=== PATIENT | male | born 1990 | race Caucasian/White ===

== ENCOUNTER 2020-01-12 06:20 | Emergency (ER) | payer OTHER ==
[2020-01-12 06:46] VITALS: BP 120/90; PULSE 96; TEMP 98.1; BMI 25.7
--- NOTE | 2020-01-12 08:03 | PDOC ---
History of Present Illness - General Chief Complaint: Substance Abuse Stated Complaint: WEAKNESS & LETHARGY - History of Present Illness Initial Comments: 01/12/20 07:56 29 M with Hx of opioid and benzo use BIBA from home for choking during sleep. At 5 am, his gf noticed him choking in his sleep, she administered nasal norcan, and called the ambulance. He denies fever, chills, Vomitting. But he endorsed nausea, change of vision, weakness, chest pain, dizziness, and shortness of breath. He is breathing normally with RR of 20s at the ED, heart rate in the 80s. He denies use of opioid within the past 24 hrs, denies illicits drugs: cocaine, benzo, IV drug use, hx of hep C. He admitted using heroin by snoring 6 lines 4 days ago. He denies suicidal ideation. PMH: opioid use PSH: none Med: gabapentin, clonapin PCP: goldie grant SS: + smoking, drinking, drugs, last use of heroin was 4 days ago with 6 lines. worked as electrician yard. ROS GENERAL/CONSTITUTIONAL: No fever or chills. weakness. HEAD, EYES, EARS, NOSE AND THROAT: change in vision. No ear pain or discharge. No sore throat. CARDIOVASCULAR: chest pain and shortness of breath RESPIRATORY: No cough, wheezing, or hemoptysis. GASTROINTESTINAL: nausea, no vomiting, diarrhea or constipation. GENITOURINARY: No dysuria, frequency, or change in urination. MUSCULOSKELETAL: No joint or muscle swelling or pain. No neck or back pain. SKIN: No rash NEUROLOGIC: No headache, + vertigo, no loss of consciousness, or change in strength/sensation. ENDOCRINE: No increased thirst. No abnormal weight change HEMATOLOGIC/LYMPHATIC: No anemia, easy bleeding, or history of blood clots. ALLERGIC/IMMUNOLOGIC: No hives or skin allergy. PE GENERAL: Awake, alert, and fully oriented, in no acute distress HEAD: No signs of trauma, normocephalic, atraumatic EYES: PERRLA, EOMI, sclera anicteric, conjunctiva clear ENT: Auricles normal inspection, hearing grossly normal, nares patent, oropharynx clear without exudates. Moist mucosa NECK: Normal ROM, supple, no lymphadenopathy, JVD, or masses LUNGS: No distress, speaks full sentences, clear to auscultation bilaterally HEART: Regular rate and rhythm, normal S1 and S2, no murmurs, rubs or gallops, peripheral pulses normal and equal bilaterally. ABDOMEN: Soft, nontender, normoactive bowel sounds. No guarding, no rebound. No masses EXTREMITIES : Normal inspection, Normal range of motion, no edema. No clubbing or cyanosis. NEUROLOGICAL: Cranial nerves II through XII grossly intact. Normal speech, normal gait, no focal sensorimotor deficits SKIN: Warm, Dry, normal turgor, no rashes or lesions noted 01/12/20 09:16 Past History - Medical History Allergies/Adverse Reactions: Allergies Allergy/AdvReac Type Severity Reaction Status Date / Time No Known Allergies Allergy Verified 01/12/20 06:44 Home Medications: Ambulatory Orders Alprazolam [Xanax -] 2 mg PO BID 02/10/14 clonazePAM [Klonopin -] 0.1 mg PO BID 02/10/14 hydrOXYzine HCL [Atarax -] 50 mg PO BID 02/10/14 Zolpidem Tartrate [Ambien] 10 mg PO HS PRN #30 tablet 02/11/14 Anemia: No Asthma: No Cancer: No Cardiac Disorders: No CVA: No COPD: No CHF: No Dementia: No Diabetes: No GI Disorders: No Disorders: No HTN: No Hypercholesterolemia: No Kidney Stones: No Liver Disease: No Seizures: Yes (DRUG RELATED SEIZURES 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) Thyroid Disease: No - Surgical History Abdominal Surgery: No Appendectomy: No Cardiac Surgery: No Cholecystectomy: No Lung Surgery: No Neurologic Surgery: No Orthopedic Surgery: No - Reproductive History Testicular Surgery: No - Immunization History Td Vaccination: Yes Immunization Up to Date: Yes - Psycho-Social/Smoking History Smoking Status: No Smoking History: Current every day smoker Years of Tobacco Use: 0 Have you smoked in the past 12 months: Yes Number of Cigarettes Smoked Daily: 10 Cigars Per Day: 0 Information on smoking cessation initiated: No 'Breaking Loose' booklet given: 02/10/14 - Substance Abuse Hx (Audit-C & DAST Scrn) How often the patient has a drink containing alcohol: Monthly or less Number of drinks the patient has on a typical day: 3 or 4 How often the patient has six or more drinks on one occasion: Less than monthly Score: In Men: 4 or > Positive; In Women: 3 or > Positive: 3 Screen Result (Pos requires Nsg. Audit-10AR): Negative In the last yr the pt used illegal drug/Rx for NonMed reason: Yes Score: Yes response is considered Positive: 1 Screen Result (Positive result requires Nsg. DAST-10): Positive *Physical Exam - Vital Signs Last Vital Signs Temp Pulse Resp BP Pulse Ox 98.1 F 96 H 18 120/90 99 01/12/20 06:27 01/12/20 06:27 01/12/20 06:27 01/12/20 06:27 01/12/20 06:27 ED Treatment Course - LABORATORY CBC & Chemistry Diagram: 01/12/20 07:52 01/12/20 07:52 - RADIOLOGY Radiology Studies Ordered: Category Date Time Status CHEST PA & LAT [RAD] Stat Radiology 01/12/20 07:33 Ordered Medical Decision Making - Medical Decision Making 01/12/20 08:04 29 m with hx of opioid use BIBA from home for choking during sleep, administered nasal norcan at 5 am. ddx: opioid tox, ACS chest pain, aspiration Plan: cardiac monitoring, EKG, chest xray, CBC,CMP, trop. 01/12/20 08:06 EKG: reg rate, rhtym, normal axis , no sign of acute ischemic changes. vent rate 87 , qt/qtc 354/425 01/12/20 08:17 Patient is interested in [facility]. Patient is evaluated by senior and attending. 01/12/20 09:12 chest x ray is normal. Lab shows no concerning value. Patient is reassessed and stable Patient is [facility]. 01/12/20 09:58 Utox revealed positive : methadone, Benzo, marijuana. Discharge - Discharge Information Problems reviewed: Yes Clinical Impression/Diagnosis: Opioid dependence Opioid dependence with intoxication Qualifiers: Complication of substance-induced condition: uncomplicated Qualified Code(s): F11.220 - Opioid dependence with intoxication, uncomplicated Condition: Good Disposition: HOME - Admission No - Follow up/Referral Referrals: ON STAFF,NOT [Primary Care Provider] - - Patient Discharge Instructions Additional Instructions: Discharge Instructions: You were seen in the emergency department for opioid toxicity overdose We performed EKG, chest Xray, lab work, troponin, everything came back showed no concerning problem. Home Care and Follow Up: - Seek immediate medical care if you have significant worsening of your symptoms, respiratory depression, nausea, vomiting. - Patient is encouraged to call for [facility], recommended to go. - Encourage to stop recreational heroin. If Opioid overdose, please use nasal narcan. - Please follow up with your PCP Dr. Grant for further problem or medication adjustment. - Post Discharge Activity
[2020-01-12 08:10] LABS: HEMATOCRIT 50.3 % (35.4-49); HEMOGLOBIN 17.3 GM/dL (11.7-16.9); MCH 29.9 pg (25.7-33.7); MCHC 34.5 g/dl (32.0-35.9); MEAN CELL VOLUME 86.9 fl (80-96); MEAN PLT VOLUME 7.4 fl (7.5-11.1); PLATELET COUNT 314 K/MM3 (134-434); RBC 5.79 M/mm3 (4.00-5.60)
[2020-01-12 08:37] LABS: ALBUMIN 4.6 g/dl (3.4-5.0); ALK PHOS 68 U/L (45-117); ANION GAP 10 MMOL/L (8-16); BLOOD UREA NITROGEN 19.6 mg/dL (7-18); CALCIUM 9.9 mg/dL (8.5-10.1); CHLORIDE 102 mmol/L (98-107); CO2 24 mmol/L (21-32); GLUCOSE,RANDOM 116 mg/dL (74-106); POTASSIUM 3.9 mmol/L (3.5-5.1); SGOT/AST 13 U/L (15-37); SGPT/ALT 24 U/L (13-61); SODIUM 136 mmol/L (136-145); TOT PROT 9.2 g/dl (6.4-8.2)
--- NOTE | 2020-01-12 09:20 | PDOC ---
Attending Attestation - Resident Resident Name: Camilo Saucedo - ED Attending Attestation I have performed the following: I have examined & evaluated the patient, The case was reviewed & discussed with the resident, I agree w/resident's findings & plan, Exceptions are as noted - HPI HPI: 01/12/20 09:20 29 years old history of intranasal heroin abuse presents to the ED after choking episode last night and sleep denies any recent drug use girlfriend had administered Narcan to the patient patient now with no complaints some mild chest discomfort nonradiating nonexertional patient denies fever chills shortness of breath nausea vomiting diarrhea adamantly endorses did not use drugs last night - Physicial Exam PE: 01/12/20 09:21 Vitals: Triage Vital signs reviewed distant General Appearance: No acute distress, well nourished well developed, Head: Atraumatic, Neck: Supple; no Nucal rigidity Chest Wall: Nontender Cardiac: Regular rate and rhythym, no murmurs, no rubs, no gallops, Lungs: Clear to auscultation bilateral, good air movement bilaterally, Abdomen: Soft, non distended, normal bowel sounds, non tender to palpation Extremities: Full range of motion to all extremities, no cyanosis, clubbing, or edema Skin: Warm and dry, no rashes or lesions, no rash, no petechiae Neuro: AOX3; cranial Nerves 2-12 grossly intact, strength intact to all extremities, sensation intact to all extremities, gait normal Psych: Normal mood, normal affect - Medical Decision Making 01/12/20 09:21 Well-appearing no apparent distress with choking episode last night adamantly denies drug use intranasal Narcan given approximately 5 AM. Patient has been observed in the emergency department now for 3 hours well-appearing no apparent distress EKG demonstrates normal sinus rhythm no ST elevations isolated T wave inversions in lead III 01/12/20 09:24 Labs within normal limits EKG nonischemic troponin negative Patient well-appearing no apparent distress observed for 3 hours provided with information regarding rehab advised against recurrent drug use Findings, need for follow-up and strict return instructions discussed with patient. Discharge - Discharge Information Problems reviewed: Yes Clinical Impression/Diagnosis: Opioid dependence Opioid dependence with intoxication Qualifiers: Complication of substance-induced condition: uncomplicated Qualified Code(s): F11.220 - Opioid dependence with intoxication, uncomplicated Condition: Good Disposition: HOME - Admission No - Follow up/Referral Referrals: ON STAFF,NOT [Primary Care Provider] - - Patient Discharge Instructions Additional Instructions: Discharge Instructions: You were seen in the emergency department for opioid toxicity overdose We performed EKG, chest Xray, lab work, troponin, everything came back showed no concerning problem. Home Care and Follow Up: - Seek immediate medical care if you have significant worsening of your symptoms, respiratory depression, nausea, vomiting. - Patient is encouraged to call for [facility], recommended to go. - Encourage to stop recreational heroin. If Opioid overdose, please use nasal narcan. - Please follow up with your PCP Dr. Stewart for further problem or medication adjustment. - Post Discharge Activity
[2020-01-12 09:45] LABS: COCAINE, UR NEGATIVE ng/ml (CUTOFF=300); OPIATES, URI NEGATIVE ng/ml (CUTOFF=300); PHENCYCLIDINE,URINE NEGATIVE ng/ml (CUTOFF=25); URINE AMPHETAMINES NEGATIVE ng/ml (CUTOFF=500); URINE BARBITURATES NEGATIVE ng/ml (CUTOFF=200)
[2020-01-12 09:57] LABS: URINE BENZODIAZEPINES POSITIVE ng/ml (CUTOFF=200)
[2020-01-12 09:58] LABS: METHADONE, UR POSITIVE ng/ml (CUTOFF=300)
--- NOTE | 2020-01-12 12:11 | EKG ---
Test Reason : Blood Pressure : / mmHG Vent. Rate : 087 BPM Atrial Rate : 087 BPM P-R Int : 146 ms QRS Dur : 096 ms QT Int : 354 ms P-R-T Axes : 061 090 014 degrees QTc Int : 425 ms NORMAL SINUS RHYTHM RIGHTWARD AXIS T WAVE ABNORMALITY, CONSIDER INFERIOR ISCHEMIA ABNORMAL ECG NO PREVIOUS ECGS AVAILABLE Confirmed by STARLA SOLIZ MD ([id number]) on 01/12/2020 12:10:24 PM Referred By: Confirmed By:STARLA SOLIZ MD
== END 2020-01-12 09:50 | disposition home or self-care (01) ==
LOC: SUPCPDRO 06:20 → JER 06:20
DX: F11.220 Opioid dependence with intoxication, uncomplicated (principal)
CPT/HCPCS: 36415; 71046-TC-FY; 80053; 80307; 82550; 84484; 85027; 93005; 93010; 99284-25

== ENCOUNTER 2021-01-29 14:42 | Inpatient (IN) | payer OTHER ==
[2021-01-29 18:08] VITALS: BMI 24.8
[2021-01-29] MEDS ORDERED: MAGNESIUM HYDROX 2400MG/30ML ORAL SUSPENSION 30 ML CUP PO PRN (19:20)
[2021-01-29] MEDS ORDERED: methaDONE HCL 10 MG TABLET (FOR DETOX USE ONLY) PO ONE (19:20)
[2021-01-29] MEDS ORDERED: BISMUTH SUBSALICYLATE 524 MG/30 ML PO PRN (19:20)
[2021-01-29] MEDS ORDERED: ACETAMINOPHEN 325 MG TABLET (FP) PO PRN ×2 (19:20)
[2021-01-29] MEDS ORDERED: MENTHOL/PHENOL 1 EACH UD MM PRN (19:20)
[2021-01-29] MEDS ORDERED: ONDANSETRON *ODT* 4 MG TABLET SL PRN (19:20)
[2021-01-29] MEDS ORDERED: MAG HYDROX/AL HYDROX/SIMETH 30 ML UNIT-DOSE CUP PO PRN (19:20)
[2021-01-29] MEDS ORDERED: MAGNESIUM CITRATE 300 ML BOTTLE PO PRN (19:20)
[2021-01-29] MEDS ORDERED: IBUPROFEN 400 MG TABLET (FP) PO PRN (19:20)
[2021-01-29] MEDS: NICOTINE 14 MG/24 HOURS TOPICAL PATCH TD SCH (21:04)
[2021-01-29] MEDS: PRENATAL VITAMINS W/ FOLIC ACID TABLET (FP) PO SCH (21:05)
[2021-01-29] MEDS: THIAMINE HCL 100 MG TABLET (FP) PO SCH ×2 (21:05→22:21)
[2021-01-29] MEDS: MELATONIN 5 MG TABLETS PO SCH ×2 (21:05→22:21)
[2021-01-29] MEDS: diazePAM 5 MG TABLET PO SCH (22:16)
[2021-01-29] MEDS: hydrOXYzine PAMOATE 25 MG CAPSULE (FP) PO SCH (22:22)
[2021-01-30] MEDS: diazePAM 5 MG TABLET PO SCH ×4 (05:27→22:26)
[2021-01-30] MEDS: hydrOXYzine PAMOATE 25 MG CAPSULE (FP) PO SCH ×5 (05:27→22:26)
[2021-01-30] MEDS ORDERED: methaDONE HCL 10 MG TABLET (FOR DETOX USE ONLY) ONE (09:17)
[2021-01-30] MEDS: NICOTINE 14 MG/24 HOURS TOPICAL PATCH TD SCH (10:10)
[2021-01-30] MEDS: PRENATAL VITAMINS W/ FOLIC ACID TABLET (FP) PO SCH (10:11)
[2021-01-30 11:00] LABS: HEMATOCRIT 33.6 % (35.4-49); HEMOGLOBIN 11.5 GM/dL (11.7-16.9); MCH 29.9 pg (25.7-33.7); MCHC 34.3 g/dl (32.0-35.9); MEAN PLT VOLUME 7.5 fl (7.5-11.1); PLATELET COUNT 275 10^3/uL (134-434); RBC 3.86 M/mm3 (4.00-5.60); RDW 12.9 % (11.9-15.9); WHITE BLOOD COUNT 7.8 K/mm3 (4.0-10.0)
[2021-01-30 11:04] LABS: ALBUMIN 3.2 g/dl (3.4-5.0); BLOOD UREA NITROGEN 9.6 mg/dL (7-18); CALCIUM 8.4 mg/dL (8.5-10.1)
[2021-01-30 11:07] LABS: CREATININE 0.8 mg/dL (0.55-1.3)
[2021-01-30 11:09] LABS: BILIRUBIN,TOTAL 0.4 mg/dL (0.2-1); TOT PROT 6.3 g/dl (6.4-8.2)
[2021-01-30] MEDS: cloNIDine HCL 0.1 MG TABLET PO PRN (17:24)
[2021-01-30] MEDS: METHOCARBAMOL 500 MG TABLET PO PRN (17:24)
[2021-01-30] MEDS: THIAMINE HCL 100 MG TABLET (FP) PO SCH (22:26)
[2021-01-30] MEDS: MELATONIN 5 MG TABLETS PO SCH (22:27)
[2021-01-31] MEDS: hydrOXYzine PAMOATE 25 MG CAPSULE (FP) PO SCH ×5 (06:14→22:10)
[2021-01-31] MEDS: diazePAM 5 MG TABLET PO SCH ×3 (06:14→22:10)
[2021-01-31] MEDS: METHOCARBAMOL 500 MG TABLET PO PRN (06:15)
[2021-01-31] MEDS ORDERED: methaDONE HCL 10 MG TABLET (FOR DETOX USE ONLY) PO ONE (10:00)
[2021-01-31] MEDS: NICOTINE 14 MG/24 HOURS TOPICAL PATCH TD SCH (10:25)
[2021-01-31] MEDS: diazePAM 5 MG TABLET PO PRN (10:26)
[2021-01-31] MEDS: PRENATAL VITAMINS W/ FOLIC ACID TABLET (FP) PO SCH (10:27)
[2021-01-31] MEDS: BACITRACIN 0.9 GM PACKET TP SCH ×2 (10:28→22:09)
[2021-01-31] MEDS: GABAPENTIN 300 MG CAPSULE PO SCH ×2 (13:03→22:09)
[2021-01-31] MEDS: NICOTINE 10 MG CARTRIDGE (INHALER) IH PRN (13:03)
[2021-01-31] MEDS: cloNIDine HCL 0.1 MG TABLET PO PRN (17:45)
[2021-01-31] MEDS: PSYLLIUM 5.85 GM PACKET PO SCH (17:47)
[2021-01-31] MEDS: THIAMINE HCL 100 MG TABLET (FP) PO SCH (22:09)
[2021-01-31] MEDS: MELATONIN 5 MG TABLETS PO SCH (22:09)
[2021-02-01] MEDS: hydrOXYzine PAMOATE 25 MG CAPSULE (FP) PO SCH ×5 (05:50→22:09)
[2021-02-01] MEDS: diazePAM 5 MG TABLET PO SCH ×2 (05:50→17:13)
[2021-02-01] MEDS: GABAPENTIN 300 MG CAPSULE PO SCH ×3 (05:50→22:08)
[2021-02-01] MEDS: METHOCARBAMOL 500 MG TABLET PO PRN ×3 (06:28→22:09)
[2021-02-01] MEDS ORDERED: methaDONE HCL 10 MG TABLET (FOR DETOX USE ONLY) ONE (09:50)
[2021-02-01] MEDS: BACITRACIN 0.9 GM PACKET TP SCH ×2 (10:02→22:09)
[2021-02-01] MEDS: diazePAM 5 MG TABLET PO PRN ×2 (10:03→14:23)
[2021-02-01] MEDS: PRENATAL VITAMINS W/ FOLIC ACID TABLET (FP) PO SCH (10:04)
[2021-02-01] MEDS: NICOTINE 14 MG/24 HOURS TOPICAL PATCH TD SCH (10:06)
[2021-02-01] MEDS: NICOTINE 10 MG CARTRIDGE (INHALER) IH PRN (10:07)
[2021-02-01] MEDS: DOCUSATE SODIUM 100 MG CAPSULE (FP) PO SCH ×2 (13:04→22:09)
[2021-02-01] MEDS: PSYLLIUM 5.85 GM PACKET PO SCH (17:12)
[2021-02-01] MEDS: MELATONIN 5 MG TABLETS PO SCH (22:09)
[2021-02-01] MEDS: THIAMINE HCL 100 MG TABLET (FP) PO SCH (22:09)
[2021-02-02] MEDS ORDERED: diazePAM 5 MG TABLET PO ONE (06:00)
[2021-02-02] MEDS: NICOTINE 10 MG CARTRIDGE (INHALER) IH PRN ×2 (06:02→10:24)
[2021-02-02] MEDS: hydrOXYzine PAMOATE 25 MG CAPSULE (FP) PO SCH ×5 (06:02→22:09)
[2021-02-02] MEDS: GABAPENTIN 300 MG CAPSULE PO SCH ×3 (06:02→22:09)
[2021-02-02] MEDS ORDERED: methaDONE HCL 10 MG TABLET (FOR DETOX USE ONLY) PO ONE (10:00)
[2021-02-02] MEDS: METHOCARBAMOL 500 MG TABLET PO PRN ×2 (10:22→22:08)
[2021-02-02] MEDS: BACITRACIN 0.9 GM PACKET TP SCH ×2 (10:22→22:08)
[2021-02-02] MEDS: DOCUSATE SODIUM 100 MG CAPSULE (FP) PO SCH ×2 (10:22→22:09)
[2021-02-02] MEDS: PRENATAL VITAMINS W/ FOLIC ACID TABLET (FP) PO SCH (12:42)
[2021-02-02] MEDS: NICOTINE 14 MG/24 HOURS TOPICAL PATCH TD SCH (12:42)
[2021-02-02] MEDS: PSYLLIUM 5.85 GM PACKET PO SCH (18:02)
[2021-02-02] MEDS: THIAMINE HCL 100 MG TABLET (FP) PO SCH (22:09)
[2021-02-02] MEDS: MELATONIN 5 MG TABLETS PO SCH (22:09)
[2021-02-03] MEDS: GABAPENTIN 300 MG CAPSULE PO SCH ×2 (06:09→13:20)
[2021-02-03] MEDS: METHOCARBAMOL 500 MG TABLET PO PRN ×2 (06:10→13:20)
[2021-02-03] MEDS: hydrOXYzine PAMOATE 25 MG CAPSULE (FP) PO SCH ×3 (06:10→13:46)
[2021-02-03] MEDS: PRENATAL VITAMINS W/ FOLIC ACID TABLET (FP) PO SCH (11:05)
[2021-02-03] MEDS: BACITRACIN 0.9 GM PACKET TP SCH (11:05)
[2021-02-03] MEDS: NICOTINE 10 MG CARTRIDGE (INHALER) IH PRN (11:05)
[2021-02-03] MEDS: NICOTINE 14 MG/24 HOURS TOPICAL PATCH TD SCH (11:05)
[2021-02-03] MEDS: DOCUSATE SODIUM 100 MG CAPSULE (FP) PO SCH (11:05)
[2021-02-03 14:06] LABS: SARS-CoV-2 NAA Not Detected (Not Detected)
[2021-02-03 14:18] VITALS: BP 126/77; PULSE 103; TEMP 98.1
== END 2021-02-03 15:49 | disposition home or self-care (01) | DRG 773 ==
LOC: YASAS 14:42 → Y6N 19:30
PROVIDERS: ADMIT Allergy & Immunology; ATTEND Allergy & Immunology
PROC: HZ2ZZZZ Detoxification Services for Substance Abuse Treatment (ICD-10-PCS; principal; 2021-01-29)
DX: F11.23 Opioid dependence with withdrawal (principal); F10.230 Alcohol dependence with withdrawal, uncomplicated; F12.20 Cannabis dependence, uncomplicated; F19.280 Other psychoactive substance dependence with psychoactive substance-induced anxiety disorder; F19.282 Other psychoactive substance dependence with psychoactive substance-induced sleep disorder; F32.9 Major depressive disorder, single episode, unspecified; D64.9 Anemia, unspecified; Z62.810 Personal history of physical and sexual abuse in childhood; Z86.19 Personal history of other infectious and parasitic diseases; Z56.0 Unemployment, unspecified
CPT/HCPCS: 36415; 80053; 85027; 86780; C9803; J0735; U0003; U0005

== ENCOUNTER 2021-04-22 11:52 | Inpatient (IN) | payer OTHER ==
[2021-04-22 13:16] VITALS: BMI 26.6
[2021-04-22] MEDS ORDERED: MAGNESIUM CITRATE 300 ML BOTTLE PO PRN (15:20)
[2021-04-22] MEDS ORDERED: ACETAMINOPHEN 325 MG TABLET (FP) PO PRN ×2 (15:20)
[2021-04-22] MEDS ORDERED: MAG HYDROX/AL HYDROX/SIMETH 30 ML UNIT-DOSE CUP PO PRN (15:20)
[2021-04-22] MEDS ORDERED: MAGNESIUM HYDROX 2400MG/30ML ORAL SUSPENSION 30 ML CUP PO PRN (15:20)
[2021-04-22] MEDS ORDERED: IBUPROFEN 400 MG TABLET (FP) PO PRN (15:20)
[2021-04-22] MEDS ORDERED: ONDANSETRON *ODT* 4 MG TABLET SL PRN (15:20)
[2021-04-22] MEDS ORDERED: BISMUTH SUBSALICYLATE 262 MG/15 ML BTL PO PRN (15:20)
[2021-04-22] MEDS ORDERED: MENTHOL/PHENOL 1 EACH UD MM PRN (15:20)
[2021-04-22] MEDS ORDERED: cloNIDine HCL 0.1 MG TABLET PO PRN ×2 (16:33→20:43)
[2021-04-22] MEDS: hydrOXYzine PAMOATE 25 MG CAPSULE (FP) PO SCH ×2 (18:38→21:43)
[2021-04-22] MEDS ORDERED: methaDONE HCL 10 MG TABLET (FOR DETOX USE ONLY) PO ONE (20:43)
[2021-04-22] MEDS: MELATONIN 5 MG TABLETS PO SCH (21:39)
[2021-04-22] MEDS: THIAMINE HCL 100 MG TABLET (FP) PO SCH (21:40)
[2021-04-22] MEDS: METHOCARBAMOL 500 MG TABLET PO PRN (21:43)
[2021-04-22] MEDS: diazePAM 5 MG TABLET PO SCH (22:32)
[2021-04-23] MEDS: diazePAM 5 MG TABLET PO SCH ×5 (05:22→22:39)
[2021-04-23] MEDS: hydrOXYzine PAMOATE 25 MG CAPSULE (FP) PO SCH ×5 (05:22→22:38)
[2021-04-23] MEDS: METHOCARBAMOL 500 MG TABLET PO PRN ×3 (05:24→22:41)
[2021-04-23] MEDS ORDERED: methaDONE HCL 10 MG TABLET (FOR DETOX USE ONLY) ONE (09:15)
[2021-04-23] MEDS ORDERED: methaDONE HCL 10 MG TABLET (FOR DETOX USE ONLY) PO ONE (10:00)
[2021-04-23] MEDS: PRENATAL VITAMINS W/ FOLIC ACID TABLET (FP) PO SCH (10:06)
[2021-04-23 11:33] LABS: HEMATOCRIT 34.5 % (35.4-49); HEMOGLOBIN 12.1 GM/dL (11.7-16.9); MCH 30.1 pg (25.7-33.7); MEAN CELL VOLUME 85.9 fl (80-96); MEAN PLT VOLUME 7.3 fl (7.5-11.1); PLATELET COUNT 224 10^3/uL (134-434); RBC 4.01 M/mm3 (4.00-5.60); RDW 13.3 % (11.9-15.9); WHITE BLOOD COUNT 5.9 K/mm3 (4.0-10.0)
[2021-04-23 11:47] LABS: ALBUMIN 3.1 g/dl (3.4-5.0); BLOOD UREA NITROGEN 10.7 mg/dL (7-18)
[2021-04-23 11:48] LABS: CALCIUM 8.4 mg/dL (8.5-10.1)
[2021-04-23 11:50] LABS: CREATININE 0.8 mg/dL (0.55-1.3)
[2021-04-23 11:51] LABS: BILIRUBIN,TOTAL 0.5 mg/dL (0.2-1)
[2021-04-23 11:52] LABS: TOT PROT 6.4 g/dl (6.4-8.2)
[2021-04-23 12:49] LABS: HIV INTERPRETATION NEGATIVE (NEGATIVE)
[2021-04-23] MEDS: diazePAM 5 MG TABLET PO PRN (14:43)
[2021-04-23] MEDS: THIAMINE HCL 100 MG TABLET (FP) PO SCH (22:38)
[2021-04-23] MEDS: MELATONIN 5 MG TABLETS PO SCH (22:38)
[2021-04-23] MEDS: NICOTINE 10 MG CARTRIDGE (INHALER) IH PRN (22:44)
[2021-04-24] MEDS: diazePAM 5 MG TABLET PO SCH ×3 (05:45→22:12)
[2021-04-24] MEDS: hydrOXYzine PAMOATE 25 MG CAPSULE (FP) PO SCH ×5 (05:46→22:20)
[2021-04-24] MEDS: METHOCARBAMOL 500 MG TABLET PO PRN ×3 (05:47→22:13)
[2021-04-24] MEDS ORDERED: methaDONE HCL 10 MG TABLET (FOR DETOX USE ONLY) PO ONE (10:00)
[2021-04-24] MEDS: PRENATAL VITAMINS W/ FOLIC ACID TABLET (FP) PO SCH (10:04)
[2021-04-24] MEDS: diazePAM 5 MG TABLET PO PRN (10:07)
[2021-04-24] MEDS: GABAPENTIN 100 MG CAPSULE PO SCH ×2 (13:49→22:12)
[2021-04-24] MEDS: MELATONIN 5 MG TABLETS PO SCH (22:13)
[2021-04-24] MEDS: THIAMINE HCL 100 MG TABLET (FP) PO SCH (22:20)
[2021-04-25] MEDS: METHOCARBAMOL 500 MG TABLET PO PRN ×2 (05:21→17:45)
[2021-04-25] MEDS: diazePAM 5 MG TABLET PO SCH ×2 (05:21→17:42)
[2021-04-25] MEDS: hydrOXYzine PAMOATE 25 MG CAPSULE (FP) PO SCH ×5 (05:21→22:09)
[2021-04-25] MEDS ORDERED: methaDONE HCL 10 MG TABLET (FOR DETOX USE ONLY) ONE (09:20)
[2021-04-25] MEDS ORDERED: methaDONE HCL 10 MG TABLET (FOR DETOX USE ONLY) PO ONE (10:00)
[2021-04-25] MEDS: GABAPENTIN 100 MG CAPSULE PO SCH ×3 (10:12→22:09)
[2021-04-25] MEDS: PRENATAL VITAMINS W/ FOLIC ACID TABLET (FP) PO SCH (10:13)
[2021-04-25] MEDS: diazePAM 5 MG TABLET PO PRN ×2 (10:16→14:20)
[2021-04-25] MEDS: NICOTINE 10 MG CARTRIDGE (INHALER) IH PRN ×2 (10:18→19:59)
[2021-04-25] MEDS: THIAMINE HCL 100 MG TABLET (FP) PO SCH (22:09)
[2021-04-25] MEDS: MELATONIN 5 MG TABLETS PO SCH (22:10)
[2021-04-26] MEDS: hydrOXYzine PAMOATE 25 MG CAPSULE (FP) PO SCH ×5 (05:59→22:15)
[2021-04-26] MEDS: METHOCARBAMOL 500 MG TABLET PO PRN ×3 (05:59→17:37)
[2021-04-26] MEDS ORDERED: diazePAM 5 MG TABLET PO ONE (06:00)
[2021-04-26] MEDS ORDERED: methaDONE HCL 10 MG TABLET (FOR DETOX USE ONLY) PO ONE (10:00)
[2021-04-26] MEDS: PRENATAL VITAMINS W/ FOLIC ACID TABLET (FP) PO SCH (10:13)
[2021-04-26] MEDS: GABAPENTIN 300 MG CAPSULE PO SCH ×3 (10:13→22:15)
[2021-04-26] MEDS: NICOTINE 10 MG CARTRIDGE (INHALER) IH PRN ×2 (10:19→17:59)
[2021-04-26] MEDS: MELATONIN 5 MG TABLETS PO SCH (22:15)
[2021-04-26] MEDS: THIAMINE HCL 100 MG TABLET (FP) PO SCH (22:15)
[2021-04-27] MEDS: hydrOXYzine PAMOATE 25 MG CAPSULE (FP) PO SCH ×2 (06:10→10:19)
[2021-04-27] MEDS: METHOCARBAMOL 500 MG TABLET PO PRN (06:11)
[2021-04-27] MEDS ORDERED: methaDONE HCL 10 MG TABLET (FOR DETOX USE ONLY) PO ONE (10:00)
[2021-04-27] MEDS: NICOTINE 10 MG CARTRIDGE (INHALER) IH PRN (10:02)
[2021-04-27 10:13] VITALS: BP 138/80; PULSE 94; TEMP 96.8
[2021-04-27] MEDS: PRENATAL VITAMINS W/ FOLIC ACID TABLET (FP) PO SCH (10:19)
== END 2021-04-27 12:52 | disposition other institution (70) | DRG 773 ==
LOC: YASAS 11:52 → Y6N 15:46
PROVIDERS: ADMIT Allergy & Immunology; ATTEND Allergy & Immunology
PROC: HZ2ZZZZ Detoxification Services for Substance Abuse Treatment (ICD-10-PCS; principal; 2021-04-22)
DX: F11.23 Opioid dependence with withdrawal (principal); F10.230 Alcohol dependence with withdrawal, uncomplicated; F13.20 Sedative, hypnotic or anxiolytic dependence, uncomplicated; F12.20 Cannabis dependence, uncomplicated; F17.210 Nicotine dependence, cigarettes, uncomplicated; F19.280 Other psychoactive substance dependence with psychoactive substance-induced anxiety disorder; F41.9 Anxiety disorder, unspecified; F43.10 Post-traumatic stress disorder, unspecified; M54.50 Low back pain, unspecified; G89.29 Other chronic pain; Z86.19 Personal history of other infectious and parasitic diseases; Z56.0 Unemployment, unspecified
CPT/HCPCS: 36415; 80053; 85027; 86780; 87389; C9803; U0003; U0005

== ENCOUNTER 2021-04-27 12:44 | Inpatient (IN) | payer OTHER ==
[2021-04-27] MEDS ORDERED: guaiFENesin 200 MG/10 ML 10 ML UNIT-DOSE CUPS PO PRN (14:24)
[2021-04-27] MEDS ORDERED: P-EPHED 60MG/TRIPROLIDI 2.5MG TABLET PO PRN (14:24)
[2021-04-27] MEDS ORDERED: MENTHOL/PHENOL 1 EACH UD MM PRN (14:24)
[2021-04-27] MEDS ORDERED: MAG HYDROX/AL HYDROX/SIMETH 30 ML UNIT-DOSE CUP PO PRN (14:24)
[2021-04-27] MEDS ORDERED: IBUPROFEN 400 MG TABLET (FP) PO PRN (14:24)
[2021-04-27] MEDS ORDERED: LOPERAMIDE HCL 2 MG CAPSULE PO PRN (14:24)
[2021-04-27] MEDS: ACETAMINOPHEN 325 MG TABLET (FP) PO PRN (15:58)
[2021-04-27] MEDS: hydrOXYzine PAMOATE 25 MG CAPSULE (FP) PO PRN (16:57)
[2021-04-27] MEDS: NICOTINE 10 MG CARTRIDGE (INHALER) IH PRN (16:57)
[2021-04-27] MEDS: MELATONIN 5 MG TABLETS PO SCH (21:47)
[2021-04-27] MEDS: THIAMINE HCL 100 MG TABLET (FP) PO SCH (21:47)
[2021-04-28] MEDS: PRENATAL VITAMINS W/ FOLIC ACID TABLET (FP) PO SCH (09:38)
[2021-04-28] MEDS: hydrOXYzine PAMOATE 25 MG CAPSULE (FP) PO PRN ×2 (09:38→17:13)
[2021-04-28] MEDS: NICOTINE 10 MG CARTRIDGE (INHALER) IH PRN ×2 (09:38→17:13)
[2021-04-28] MEDS: NICOTINE 7 MG/24 HOURS TOPICAL PATCH TD SCH (09:38)
[2021-04-28] MEDS: MELATONIN 5 MG TABLETS PO SCH (21:13)
[2021-04-28] MEDS: THIAMINE HCL 100 MG TABLET (FP) PO SCH (21:13)
[2021-04-29] MEDS: NICOTINE 10 MG CARTRIDGE (INHALER) IH PRN ×2 (09:51→13:51)
[2021-04-29] MEDS: NICOTINE 7 MG/24 HOURS TOPICAL PATCH TD SCH (09:51)
[2021-04-29] MEDS: PRENATAL VITAMINS W/ FOLIC ACID TABLET (FP) PO SCH (09:51)
[2021-04-29] MEDS: hydrOXYzine PAMOATE 25 MG CAPSULE (FP) PO PRN (09:51)
[2021-04-29] MEDS: GABAPENTIN 300 MG CAPSULE PO SCH ×2 (13:51→21:48)
[2021-04-29] MEDS: hydrOXYzine PAMOATE 50 MG CAPSULE (FP) PO PRN (15:34)
[2021-04-29] MEDS: SUVOREXANT 10 MG TABLET PO PRN (21:47)
[2021-04-29] MEDS: THIAMINE HCL 100 MG TABLET (FP) PO SCH (21:47)
[2021-04-30] MEDS: GABAPENTIN 300 MG CAPSULE PO SCH ×3 (06:10→21:00)
[2021-04-30] MEDS: hydrOXYzine PAMOATE 50 MG CAPSULE (FP) PO PRN ×3 (06:44→21:01)
[2021-04-30] MEDS: PRENATAL VITAMINS W/ FOLIC ACID TABLET (FP) PO SCH (09:40)
[2021-04-30] MEDS: BUPRENORPHINE/NALOXONE 4 MG/1 MG FILM PACKET SL SCH (09:40)
[2021-04-30] MEDS: NICOTINE 10 MG CARTRIDGE (INHALER) IH PRN ×2 (09:40→14:11)
[2021-04-30] MEDS: NICOTINE 7 MG/24 HOURS TOPICAL PATCH TD SCH (09:40)
[2021-04-30] MEDS: THIAMINE HCL 100 MG TABLET (FP) PO SCH (21:00)
[2021-04-30] MEDS: SUVOREXANT 10 MG TABLET PO PRN (21:01)
[2021-05-01] MEDS: GABAPENTIN 300 MG CAPSULE PO SCH ×2 (06:14→13:59)
[2021-05-01] MEDS: hydrOXYzine PAMOATE 50 MG CAPSULE (FP) PO PRN ×4 (06:15→21:12)
[2021-05-01] MEDS: NICOTINE 10 MG CARTRIDGE (INHALER) IH PRN ×2 (06:15→21:12)
[2021-05-01] MEDS: NICOTINE 7 MG/24 HOURS TOPICAL PATCH TD SCH (10:20)
[2021-05-01] MEDS: PRENATAL VITAMINS W/ FOLIC ACID TABLET (FP) PO SCH (10:20)
[2021-05-01] MEDS: BUPRENORPHINE/NALOXONE 4 MG/1 MG FILM PACKET SL SCH (10:20)
[2021-05-01] MEDS: COLLOIDAL OATMEAL 1 BAR EACH TP PRN (16:34)
[2021-05-01] MEDS: THIAMINE HCL 100 MG TABLET (FP) PO SCH (21:12)
[2021-05-01] MEDS: GABAPENTIN 400 MG CAPSULE PO SCH (21:13)
[2021-05-01] MEDS: SUVOREXANT 10 MG TABLET PO PRN (21:48)
[2021-05-02] MEDS ORDERED: BUPRENORPHINE/NALOXONE 4 MG/1 MG FILM PACKET SL SCH (06:00)
[2021-05-02] MEDS: GABAPENTIN 400 MG CAPSULE PO SCH ×3 (06:11→21:10)
[2021-05-02] MEDS: NICOTINE 10 MG CARTRIDGE (INHALER) IH PRN ×2 (06:11→17:06)
[2021-05-02] MEDS: hydrOXYzine PAMOATE 50 MG CAPSULE (FP) PO PRN ×2 (06:11→09:52)
[2021-05-02] MEDS: BUPRENORPHINE/NALOXONE 8 MG/2 MG FILM PACKET SL SCH (07:29)
[2021-05-02] MEDS: NICOTINE 7 MG/24 HOURS TOPICAL PATCH TD SCH (09:52)
[2021-05-02] MEDS: PRENATAL VITAMINS W/ FOLIC ACID TABLET (FP) PO SCH (09:52)
[2021-05-02] MEDS: THIAMINE HCL 100 MG TABLET (FP) PO SCH (21:10)
[2021-05-02] MEDS: SUVOREXANT 10 MG TABLET PO PRN (21:11)
[2021-05-02] MEDS: TOLNAFTATE 1% CREAM 15 GM TUBE TP SCH (21:11)
[2021-05-02] MEDS ORDERED: TOLNAFTATE 1% POWDER 45 GM POW TP SCH (22:00)
[2021-05-03] MEDS: GABAPENTIN 400 MG CAPSULE PO SCH ×3 (06:07→21:37)
[2021-05-03] MEDS: BUPRENORPHINE/NALOXONE 8 MG/2 MG FILM PACKET SL SCH (06:07)
[2021-05-03] MEDS: NICOTINE 10 MG CARTRIDGE (INHALER) IH PRN ×2 (06:08→17:48)
[2021-05-03] MEDS: NICOTINE 7 MG/24 HOURS TOPICAL PATCH TD SCH (09:50)
[2021-05-03] MEDS: PRENATAL VITAMINS W/ FOLIC ACID TABLET (FP) PO SCH (09:50)
[2021-05-03] MEDS: TOLNAFTATE 1% CREAM 15 GM TUBE TP SCH ×2 (09:50→21:38)
[2021-05-03] MEDS: hydrOXYzine PAMOATE 50 MG CAPSULE (FP) PO PRN (21:37)
[2021-05-03] MEDS: SUVOREXANT 10 MG TABLET PO PRN (21:38)
[2021-05-03] MEDS: THIAMINE HCL 100 MG TABLET (FP) PO SCH (21:38)
[2021-05-04] MEDS: hydrOXYzine PAMOATE 50 MG CAPSULE (FP) PO PRN (06:16)
[2021-05-04] MEDS: BUPRENORPHINE/NALOXONE 8 MG/2 MG FILM PACKET SL SCH (06:16)
[2021-05-04] MEDS: GABAPENTIN 400 MG CAPSULE PO SCH ×3 (06:16→21:03)
[2021-05-04] MEDS: NICOTINE 10 MG CARTRIDGE (INHALER) IH PRN ×3 (06:17→19:04)
[2021-05-04] MEDS: MAGNESIUM HYDROX 2400MG/30ML ORAL SUSPENSION 30 ML CUP PO PRN (06:18)
[2021-05-04] MEDS: NICOTINE 7 MG/24 HOURS TOPICAL PATCH TD SCH (10:30)
[2021-05-04] MEDS: TOLNAFTATE 1% CREAM 15 GM TUBE TP SCH ×2 (10:30→21:04)
[2021-05-04] MEDS: PRENATAL VITAMINS W/ FOLIC ACID TABLET (FP) PO SCH (10:30)
[2021-05-04] MEDS: MAGNESIUM CITRATE 300 ML BOTTLE PO PRN (14:00)
[2021-05-04] MEDS: THIAMINE HCL 100 MG TABLET (FP) PO SCH (21:03)
[2021-05-04] MEDS: SUVOREXANT 10 MG TABLET PO PRN (21:04)
[2021-05-05] MEDS: GABAPENTIN 400 MG CAPSULE PO SCH ×3 (06:01→21:20)
[2021-05-05] MEDS: BUPRENORPHINE/NALOXONE 8 MG/2 MG FILM PACKET SL SCH (06:01)
[2021-05-05] MEDS: NICOTINE 10 MG CARTRIDGE (INHALER) IH PRN ×2 (09:52→17:56)
[2021-05-05] MEDS: PRENATAL VITAMINS W/ FOLIC ACID TABLET (FP) PO SCH (09:52)
[2021-05-05] MEDS: NICOTINE 7 MG/24 HOURS TOPICAL PATCH TD SCH (09:52)
[2021-05-05] MEDS: TOLNAFTATE 1% CREAM 15 GM TUBE TP SCH ×2 (10:24→21:21)
[2021-05-05] MEDS: hydrOXYzine PAMOATE 50 MG CAPSULE (FP) PO PRN (17:57)
[2021-05-05] MEDS: THIAMINE HCL 100 MG TABLET (FP) PO SCH (21:20)
[2021-05-05] MEDS: SUVOREXANT 10 MG TABLET PO PRN (21:21)
[2021-05-06] MEDS: GABAPENTIN 400 MG CAPSULE PO SCH ×2 (06:18→15:17)
[2021-05-06] MEDS: BUPRENORPHINE/NALOXONE 8 MG/2 MG FILM PACKET SL SCH (06:18)
[2021-05-06] MEDS: NICOTINE 10 MG CARTRIDGE (INHALER) IH PRN ×3 (06:19→14:04)
[2021-05-06] MEDS: NICOTINE 7 MG/24 HOURS TOPICAL PATCH TD SCH (10:25)
[2021-05-06] MEDS: PRENATAL VITAMINS W/ FOLIC ACID TABLET (FP) PO SCH (10:25)
[2021-05-06] MEDS: hydrOXYzine PAMOATE 50 MG CAPSULE (FP) PO PRN (10:27)
[2021-05-06] MEDS: TOLNAFTATE 1% CREAM 15 GM TUBE TP SCH ×2 (10:28→21:10)
[2021-05-06] MEDS: GABAPENTIN 300 MG CAPSULE PO SCH ×2 (14:45→21:09)
[2021-05-06] MEDS: THIAMINE HCL 100 MG TABLET (FP) PO SCH (21:10)
[2021-05-06] MEDS: SUVOREXANT 10 MG TABLET PO PRN (21:10)
[2021-05-07] MEDS: MAGNESIUM HYDROX 2400MG/30ML ORAL SUSPENSION 30 ML CUP PO PRN (06:12)
[2021-05-07] MEDS: GABAPENTIN 300 MG CAPSULE PO SCH ×3 (06:12→21:14)
[2021-05-07] MEDS: BUPRENORPHINE/NALOXONE 8 MG/2 MG FILM PACKET SL SCH (06:12)
[2021-05-07] MEDS: NICOTINE 10 MG CARTRIDGE (INHALER) IH PRN ×3 (06:13→21:14)
[2021-05-07] MEDS ORDERED: BISACODYL 5 MG TABLET.DR (FP) PO PRN (08:48)
[2021-05-07] MEDS: NICOTINE 7 MG/24 HOURS TOPICAL PATCH TD SCH (09:51)
[2021-05-07] MEDS: PRENATAL VITAMINS W/ FOLIC ACID TABLET (FP) PO SCH (09:51)
[2021-05-07] MEDS: hydrOXYzine PAMOATE 50 MG CAPSULE (FP) PO PRN ×3 (09:51→21:13)
[2021-05-07] MEDS: TOLNAFTATE 1% CREAM 15 GM TUBE TP SCH ×2 (09:52→21:14)
[2021-05-07] MEDS: THIAMINE HCL 100 MG TABLET (FP) PO SCH (21:13)
[2021-05-07] MEDS: CYCLOBENZAPRINE HCL 10 MG TABLET (FP) PO PRN (21:13)
[2021-05-07] MEDS: SUVOREXANT 10 MG TABLET PO PRN (21:15)
[2021-05-08] MEDS: GABAPENTIN 300 MG CAPSULE PO SCH ×3 (06:25→21:04)
[2021-05-08] MEDS: HYDROCORTISONE 0.5% TOPICAL CREAM 30 GM TUBE TP PRN ×2 (06:25→10:09)
[2021-05-08] MEDS: BUPRENORPHINE/NALOXONE 4 MG/1 MG FILM PACKET SL SCH ×2 (06:25→18:34)
[2021-05-08] MEDS: CYCLOBENZAPRINE HCL 10 MG TABLET (FP) PO PRN ×3 (06:27→21:04)
[2021-05-08] MEDS: NICOTINE 10 MG CARTRIDGE (INHALER) IH PRN ×3 (06:30→13:46)
[2021-05-08] MEDS: PRENATAL VITAMINS W/ FOLIC ACID TABLET (FP) PO SCH (10:07)
[2021-05-08] MEDS: NICOTINE 7 MG/24 HOURS TOPICAL PATCH TD SCH (10:08)
[2021-05-08] MEDS: TOLNAFTATE 1% CREAM 15 GM TUBE TP SCH ×2 (10:10→21:05)
[2021-05-08] MEDS: hydrOXYzine PAMOATE 50 MG CAPSULE (FP) PO PRN (21:04)
[2021-05-08] MEDS: THIAMINE HCL 100 MG TABLET (FP) PO SCH (21:04)
[2021-05-08] MEDS: SUVOREXANT 10 MG TABLET PO PRN (21:05)
[2021-05-09] MEDS: GABAPENTIN 300 MG CAPSULE PO SCH ×3 (06:20→21:40)
[2021-05-09] MEDS: CYCLOBENZAPRINE HCL 10 MG TABLET (FP) PO PRN ×3 (06:20→21:42)
[2021-05-09] MEDS: BUPRENORPHINE/NALOXONE 4 MG/1 MG FILM PACKET SL SCH ×2 (06:20→17:50)
[2021-05-09] MEDS: MAGNESIUM HYDROX 2400MG/30ML ORAL SUSPENSION 30 ML CUP PO PRN (06:22)
[2021-05-09] MEDS: NICOTINE 10 MG CARTRIDGE (INHALER) IH PRN ×3 (06:22→17:51)
[2021-05-09] MEDS: HYDROCORTISONE 0.5% TOPICAL CREAM 30 GM TUBE TP PRN (10:20)
[2021-05-09] MEDS: NICOTINE 7 MG/24 HOURS TOPICAL PATCH TD SCH (10:20)
[2021-05-09] MEDS: PRENATAL VITAMINS W/ FOLIC ACID TABLET (FP) PO SCH (10:20)
[2021-05-09] MEDS: TOLNAFTATE 1% CREAM 15 GM TUBE TP SCH ×2 (10:20→21:43)
[2021-05-09] MEDS: SUVOREXANT 10 MG TABLET PO PRN (21:41)
[2021-05-09] MEDS: THIAMINE HCL 100 MG TABLET (FP) PO SCH (21:41)
[2021-05-10] MEDS: GABAPENTIN 300 MG CAPSULE PO SCH ×3 (05:20→21:00)
[2021-05-10] MEDS: CYCLOBENZAPRINE HCL 10 MG TABLET (FP) PO PRN ×3 (05:20→21:00)
[2021-05-10] MEDS: BUPRENORPHINE/NALOXONE 4 MG/1 MG FILM PACKET SL SCH ×2 (05:20→18:25)
[2021-05-10] MEDS: MAGNESIUM CITRATE 300 ML BOTTLE PO PRN (05:20)
[2021-05-10] MEDS: NICOTINE 10 MG CARTRIDGE (INHALER) IH PRN ×3 (05:22→18:26)
[2021-05-10] MEDS: NICOTINE 7 MG/24 HOURS TOPICAL PATCH TD SCH (09:54)
[2021-05-10] MEDS: PRENATAL VITAMINS W/ FOLIC ACID TABLET (FP) PO SCH (09:54)
[2021-05-10] MEDS: TOLNAFTATE 1% CREAM 15 GM TUBE TP SCH ×2 (11:03→21:01)
[2021-05-10] MEDS: THIAMINE HCL 100 MG TABLET (FP) PO SCH (21:00)
[2021-05-10] MEDS: SUVOREXANT 10 MG TABLET PO PRN (21:00)
[2021-05-11] MEDS: CYCLOBENZAPRINE HCL 10 MG TABLET (FP) PO PRN ×3 (06:22→21:52)
[2021-05-11] MEDS: BUPRENORPHINE/NALOXONE 4 MG/1 MG FILM PACKET SL SCH ×2 (06:22→18:05)
[2021-05-11] MEDS: GABAPENTIN 300 MG CAPSULE PO SCH ×3 (06:22→21:48)
[2021-05-11] MEDS: NICOTINE 10 MG CARTRIDGE (INHALER) IH PRN ×5 (06:22→21:47)
[2021-05-11] MEDS: NICOTINE 7 MG/24 HOURS TOPICAL PATCH TD SCH (10:26)
[2021-05-11] MEDS: TOLNAFTATE 1% CREAM 15 GM TUBE TP SCH ×2 (10:26→21:49)
[2021-05-11] MEDS: PRENATAL VITAMINS W/ FOLIC ACID TABLET (FP) PO SCH (10:26)
[2021-05-11] MEDS: HYDROCORTISONE 0.5% TOPICAL CREAM 30 GM TUBE TP PRN (21:48)
[2021-05-11] MEDS: THIAMINE HCL 100 MG TABLET (FP) PO SCH (21:49)
[2021-05-12] MEDS: GABAPENTIN 300 MG CAPSULE PO SCH ×3 (06:50→21:05)
[2021-05-12] MEDS: BUPRENORPHINE/NALOXONE 4 MG/1 MG FILM PACKET SL SCH ×2 (06:50→17:08)
[2021-05-12] MEDS: CYCLOBENZAPRINE HCL 10 MG TABLET (FP) PO PRN ×2 (06:51→21:06)
[2021-05-12] MEDS: NICOTINE 10 MG CARTRIDGE (INHALER) IH PRN ×4 (06:51→17:09)
[2021-05-12] MEDS: PRENATAL VITAMINS W/ FOLIC ACID TABLET (FP) PO SCH (09:54)
[2021-05-12] MEDS: NICOTINE 7 MG/24 HOURS TOPICAL PATCH TD SCH (09:55)
[2021-05-12] MEDS: TOLNAFTATE 1% CREAM 15 GM TUBE TP SCH ×2 (09:55→21:05)
[2021-05-12] MEDS: hydrOXYzine PAMOATE 50 MG CAPSULE (FP) PO PRN (17:08)
[2021-05-12] MEDS: THIAMINE HCL 100 MG TABLET (FP) PO SCH (21:05)
[2021-05-13] MEDS: CYCLOBENZAPRINE HCL 10 MG TABLET (FP) PO PRN ×3 (06:34→21:30)
[2021-05-13] MEDS: GABAPENTIN 300 MG CAPSULE PO SCH ×3 (06:34→21:30)
[2021-05-13] MEDS: BUPRENORPHINE/NALOXONE 4 MG/1 MG FILM PACKET SL SCH ×2 (06:34→18:15)
[2021-05-13] MEDS: NICOTINE 10 MG CARTRIDGE (INHALER) IH PRN ×4 (06:35→18:14)
[2021-05-13] MEDS: NICOTINE 7 MG/24 HOURS TOPICAL PATCH TD SCH (10:34)
[2021-05-13] MEDS: TOLNAFTATE 1% CREAM 15 GM TUBE TP SCH ×2 (10:34→21:31)
[2021-05-13] MEDS: hydrOXYzine PAMOATE 50 MG CAPSULE (FP) PO PRN ×2 (10:34→21:30)
[2021-05-13] MEDS: PRENATAL VITAMINS W/ FOLIC ACID TABLET (FP) PO SCH (10:34)
[2021-05-13] MEDS: COLLOIDAL OATMEAL 1 BAR EACH TP PRN (14:55)
[2021-05-13] MEDS: MAGNESIUM HYDROX 2400MG/30ML ORAL SUSPENSION 30 ML CUP PO PRN (17:05)
[2021-05-13] MEDS: SUVOREXANT 10 MG TABLET PO PRN (21:30)
[2021-05-13] MEDS: THIAMINE HCL 100 MG TABLET (FP) PO SCH (21:30)
[2021-05-14] MEDS: BUPRENORPHINE/NALOXONE 4 MG/1 MG FILM PACKET SL SCH ×2 (07:06→18:17)
[2021-05-14] MEDS: GABAPENTIN 300 MG CAPSULE PO SCH ×3 (07:06→21:04)
[2021-05-14] MEDS: CYCLOBENZAPRINE HCL 10 MG TABLET (FP) PO PRN ×2 (07:06→21:04)
[2021-05-14] MEDS: hydrOXYzine PAMOATE 50 MG CAPSULE (FP) PO PRN (10:14)
[2021-05-14] MEDS: PRENATAL VITAMINS W/ FOLIC ACID TABLET (FP) PO SCH (10:14)
[2021-05-14] MEDS: NICOTINE 7 MG/24 HOURS TOPICAL PATCH TD SCH (10:15)
[2021-05-14] MEDS: TOLNAFTATE 1% CREAM 15 GM TUBE TP SCH ×2 (10:15→21:05)
[2021-05-14] MEDS: NICOTINE 10 MG CARTRIDGE (INHALER) IH PRN ×3 (10:16→18:18)
[2021-05-14] MEDS: ACETAMINOPHEN 325 MG TABLET (FP) PO PRN (14:18)
[2021-05-14] MEDS: THIAMINE HCL 100 MG TABLET (FP) PO SCH (21:04)
[2021-05-14] MEDS: SUVOREXANT 10 MG TABLET PO PRN (21:05)
[2021-05-15] MEDS: BUPRENORPHINE/NALOXONE 4 MG/1 MG FILM PACKET SL SCH ×2 (06:30→18:13)
[2021-05-15] MEDS: GABAPENTIN 300 MG CAPSULE PO SCH ×3 (06:30→21:52)
[2021-05-15] MEDS: CYCLOBENZAPRINE HCL 10 MG TABLET (FP) PO PRN ×3 (06:30→21:51)
[2021-05-15] MEDS: hydrOXYzine PAMOATE 50 MG CAPSULE (FP) PO PRN (10:16)
[2021-05-15] MEDS: PRENATAL VITAMINS W/ FOLIC ACID TABLET (FP) PO SCH (10:16)
[2021-05-15] MEDS: NICOTINE 7 MG/24 HOURS TOPICAL PATCH TD SCH (10:16)
[2021-05-15] MEDS: NICOTINE 10 MG CARTRIDGE (INHALER) IH PRN ×2 (10:18→21:53)
[2021-05-15] MEDS: TOLNAFTATE 1% CREAM 15 GM TUBE TP SCH ×2 (10:24→22:05)
[2021-05-15] MEDS ORDERED: MAGNESIUM CITRATE 300 ML BOTTLE PO ONE (15:53)
[2021-05-15] MEDS: SUVOREXANT 10 MG TABLET PO PRN (21:43)
[2021-05-15] MEDS: THIAMINE HCL 100 MG TABLET (FP) PO SCH (21:52)
[2021-05-16] MEDS: BUPRENORPHINE/NALOXONE 4 MG/1 MG FILM PACKET SL SCH ×2 (06:14→17:54)
[2021-05-16] MEDS: GABAPENTIN 300 MG CAPSULE PO SCH ×3 (06:15→21:01)
[2021-05-16] MEDS: CYCLOBENZAPRINE HCL 10 MG TABLET (FP) PO PRN ×2 (06:15→21:01)
[2021-05-16] MEDS: PRENATAL VITAMINS W/ FOLIC ACID TABLET (FP) PO SCH (09:57)
[2021-05-16] MEDS: TOLNAFTATE 1% CREAM 15 GM TUBE TP SCH ×2 (09:57→21:02)
[2021-05-16] MEDS: NICOTINE 10 MG CARTRIDGE (INHALER) IH PRN ×2 (09:57→13:15)
[2021-05-16] MEDS: NICOTINE 7 MG/24 HOURS TOPICAL PATCH TD SCH (09:57)
[2021-05-16] MEDS ORDERED: AMMONIUM LACTATE 12% LOTION 225 GM BOTTLE TP PRN (10:06)
[2021-05-16] MEDS: THIAMINE HCL 100 MG TABLET (FP) PO SCH (21:01)
[2021-05-16] MEDS: SUVOREXANT 10 MG TABLET PO PRN (21:01)
[2021-05-17] MEDS: GABAPENTIN 300 MG CAPSULE PO SCH ×3 (06:18→21:28)
[2021-05-17] MEDS: NICOTINE 10 MG CARTRIDGE (INHALER) IH PRN ×3 (06:18→17:44)
[2021-05-17] MEDS: BUPRENORPHINE/NALOXONE 4 MG/1 MG FILM PACKET SL SCH ×2 (06:18→17:44)
[2021-05-17] MEDS: CYCLOBENZAPRINE HCL 10 MG TABLET (FP) PO PRN ×2 (06:18→21:29)
[2021-05-17] MEDS: TOLNAFTATE 1% CREAM 15 GM TUBE TP SCH ×2 (10:30→21:29)
[2021-05-17] MEDS: PRENATAL VITAMINS W/ FOLIC ACID TABLET (FP) PO SCH (10:30)
[2021-05-17] MEDS: NICOTINE 7 MG/24 HOURS TOPICAL PATCH TD SCH (10:30)
[2021-05-17] MEDS: THIAMINE HCL 100 MG TABLET (FP) PO SCH (21:29)
[2021-05-17] MEDS: SUVOREXANT 10 MG TABLET PO PRN (21:29)
[2021-05-18] MEDS: BUPRENORPHINE/NALOXONE 4 MG/1 MG FILM PACKET SL SCH ×2 (06:44→18:34)
[2021-05-18] MEDS: CYCLOBENZAPRINE HCL 10 MG TABLET (FP) PO PRN ×2 (06:44→21:09)
[2021-05-18] MEDS: GABAPENTIN 300 MG CAPSULE PO SCH ×3 (06:44→21:09)
[2021-05-18] MEDS: NICOTINE 10 MG CARTRIDGE (INHALER) IH PRN ×4 (06:44→18:34)
[2021-05-18] MEDS: MAGNESIUM HYDROX 2400MG/30ML ORAL SUSPENSION 30 ML CUP PO PRN (06:46)
[2021-05-18] MEDS: TOLNAFTATE 1% CREAM 15 GM TUBE TP SCH ×2 (10:18→21:11)
[2021-05-18] MEDS: PRENATAL VITAMINS W/ FOLIC ACID TABLET (FP) PO SCH (10:18)
[2021-05-18] MEDS: NICOTINE 7 MG/24 HOURS TOPICAL PATCH TD SCH (10:18)
[2021-05-18] MEDS: hydrOXYzine PAMOATE 50 MG CAPSULE (FP) PO PRN ×2 (10:19→18:33)
[2021-05-18] MEDS: THIAMINE HCL 100 MG TABLET (FP) PO SCH (21:09)
[2021-05-18] MEDS: SUVOREXANT 10 MG TABLET PO PRN (21:10)
[2021-05-19] MEDS: CYCLOBENZAPRINE HCL 10 MG TABLET (FP) PO PRN ×2 (06:33→21:30)
[2021-05-19] MEDS: GABAPENTIN 300 MG CAPSULE PO SCH ×3 (06:33→21:30)
[2021-05-19] MEDS: BUPRENORPHINE/NALOXONE 4 MG/1 MG FILM PACKET SL SCH ×2 (06:33→18:36)
[2021-05-19] MEDS: NICOTINE 10 MG CARTRIDGE (INHALER) IH PRN ×5 (06:34→21:55)
[2021-05-19] MEDS: NICOTINE 7 MG/24 HOURS TOPICAL PATCH TD SCH (10:26)
[2021-05-19] MEDS: PRENATAL VITAMINS W/ FOLIC ACID TABLET (FP) PO SCH (10:26)
[2021-05-19] MEDS: TOLNAFTATE 1% CREAM 15 GM TUBE TP SCH ×2 (10:26→21:31)
[2021-05-19] MEDS: MAGNESIUM HYDROX 2400MG/30ML ORAL SUSPENSION 30 ML CUP PO PRN (13:13)
[2021-05-19] MEDS: ACETAMINOPHEN 325 MG TABLET (FP) PO PRN (13:29)
[2021-05-19] MEDS: THIAMINE HCL 100 MG TABLET (FP) PO SCH (21:29)
[2021-05-19] MEDS: hydrOXYzine PAMOATE 50 MG CAPSULE (FP) PO PRN (21:30)
[2021-05-19] MEDS: SUVOREXANT 10 MG TABLET PO PRN (21:30)
[2021-05-19] MEDS ORDERED: SUVOREXANT 10 MG TABLET PO PRN (22:00)
[2021-05-20] MEDS: BUPRENORPHINE/NALOXONE 4 MG/1 MG FILM PACKET SL SCH (06:44)
[2021-05-20] MEDS: GABAPENTIN 300 MG CAPSULE PO SCH (06:44)
[2021-05-20 06:54] VITALS: BP 132/78; PULSE 72; TEMP 98.4
== END 2021-05-20 09:08 | disposition home or self-care (01) | DRG 772 ==
LOC: YASAS 12:44 → Y3W 12:48
PROVIDERS: ADMIT Allergy & Immunology; ATTEND Allergy & Immunology
PROC: HZ42ZZZ Group Counseling for Substance Abuse Treatment, Cognitive-Behavioral (ICD-10-PCS; principal; 2021-04-27)
DX: F11.20 Opioid dependence, uncomplicated (principal); F10.20 Alcohol dependence, uncomplicated; F12.10 Cannabis abuse, uncomplicated; F17.210 Nicotine dependence, cigarettes, uncomplicated; F19.282 Other psychoactive substance dependence with psychoactive substance-induced sleep disorder; F19.280 Other psychoactive substance dependence with psychoactive substance-induced anxiety disorder; F43.10 Post-traumatic stress disorder, unspecified; M54.59 Other low back pain; G89.29 Other chronic pain; G62.9 Polyneuropathy, unspecified; K59.00 Constipation, unspecified; Z86.19 Personal history of other infectious and parasitic diseases; Z56.0 Unemployment, unspecified

== ENCOUNTER 2021-10-12 11:12 | Inpatient (IN) | payer OTHER ==
[2021-10-12 11:42] VITALS: BMI 26.2
[2021-10-12] MEDS ORDERED: LOPERAMIDE HCL 2 MG CAPSULE PO PRN (13:46)
[2021-10-12] MEDS ORDERED: MAGNESIUM CITRATE 300 ML BOTTLE PO PRN (13:46)
[2021-10-12] MEDS ORDERED: MAG HYDROX/AL HYDROX/SIMETH 30 ML UNIT-DOSE CUP PO PRN (13:46)
[2021-10-12] MEDS ORDERED: BENZOCAINE/MENTHOL (CHLORASEPTIC ) LOZENGE MM PRN (13:46)
[2021-10-12] MEDS ORDERED: MAGNESIUM HYDROX 2400MG/30ML ORAL SUSPENSION 30 ML CUP PO PRN (13:46)
[2021-10-12] MEDS ORDERED: BISMUTH SUBSALICYLATE 524 MG/30 ML PO PRN (13:46)
[2021-10-12] MEDS ORDERED: IBUPROFEN 400 MG TABLET (FP) PO PRN (13:46)
[2021-10-12] MEDS ORDERED: ONDANSETRON *ODT* 4 MG TABLET SL PRN (13:46)
[2021-10-12] MEDS ORDERED: METHOCARBAMOL 500 MG TABLET PO PRN (13:46)
[2021-10-12] MEDS ORDERED: DICYCLOMINE HCL 10 MG CAPSULE PO PRN (13:46)
[2021-10-12] MEDS ORDERED: ACETAMINOPHEN 325 MG TABLET (FP) PO PRN ×2 (13:46)
[2021-10-12] MEDS ORDERED: diazePAM 5 MG TABLET ONE (15:42)
[2021-10-12] MEDS ORDERED: hydrOXYzine PAMOATE 25 MG CAPSULE (FP) PO ONE (15:43)
[2021-10-12] MEDS: diazePAM 5 MG TABLET PO PRN (15:44)
[2021-10-12] MEDS: hydrOXYzine PAMOATE 25 MG CAPSULE (FP) PO SCH ×3 (15:44→22:39)
[2021-10-12] MEDS: diazePAM 5 MG TABLET PO SCH ×3 (18:27→22:38)
[2021-10-12] MEDS: NICOTINE 10 MG CARTRIDGE (INHALER) IH PRN ×2 (18:39→22:41)
[2021-10-12] MEDS: THIAMINE HCL 100 MG TABLET (FP) PO SCH (22:37)
[2021-10-12] MEDS: MELATONIN 5 MG TABLETS PO SCH (22:37)
[2021-10-13 00:57] LABS: PH,URINE 5.5 (5.0-8.0); URINE APPEARANCE CLEAR; URINE BILIRUBIN NEGATIVE (NEGATIVE); URINE COLOR YELLOW; URINE GLUCOSE (UA) NEGATIVE (NEGATIVE); URINE KETONE TRACE (NEGATIVE); URINE LEUK ESTERASE NEGATIVE (NEGATIVE); URINE NITRITE NEGATIVE (NEGATIVE); URINE PROTEIN NEGATIVE (NEGATIVE)
[2021-10-13] MEDS ORDERED: methaDONE HCL 40 MG DISPERSABLE TABLET ONE (04:46)
[2021-10-13] MEDS: diazePAM 5 MG TABLET PO SCH ×4 (05:51→22:46)
[2021-10-13] MEDS: hydrOXYzine PAMOATE 25 MG CAPSULE (FP) PO SCH ×2 (05:52→10:11)
[2021-10-13] MEDS ORDERED: methaDONE HCL 10 MG TABLET PO ONE (06:00)
[2021-10-13] MEDS: PRENATAL VITAMINS W/ FOLIC ACID TABLET (FP) PO SCH (10:12)
[2021-10-13] MEDS: NICOTINE 10 MG CARTRIDGE (INHALER) IH PRN ×2 (10:30→17:13)
[2021-10-13] MEDS: SERTRALINE HCL 50 MG TABLET (FP) PO SCH (12:11)
[2021-10-13 12:38] LABS: HEMATOCRIT 37.5 % (35.4-49); HEMOGLOBIN 12.4 GM/dL (11.7-16.9); MCH 28.6 pg (25.7-33.7); MCHC 33.1 g/dl (32.0-35.9); MEAN CELL VOLUME 86.4 fl (80-96); MEAN PLT VOLUME 7.6 fl (7.5-11.1); PLATELET COUNT 217 10^3/uL (134-434); RBC 4.34 M/mm3 (4.00-5.60); RDW 12.2 % (11.9-15.9); WHITE BLOOD COUNT 6.4 K/mm3 (4.0-10.0)
[2021-10-13 13:01] LABS: CALCIUM 8.6 mg/dL (8.5-10.1)
[2021-10-13 13:02] LABS: ALBUMIN 3.4 g/dl (3.4-5.0)
[2021-10-13 13:04] LABS: CREATININE 0.8 mg/dL (0.55-1.3)
[2021-10-13 13:05] LABS: BILIRUBIN,TOTAL 0.2 mg/dL (0.2-1); TOT PROT 7.1 g/dl (6.4-8.2)
[2021-10-13] MEDS: diazePAM 5 MG TABLET PO PRN (13:16)
[2021-10-13] MEDS: GABAPENTIN 300 MG CAPSULE PO SCH ×2 (13:16→22:46)
[2021-10-13] MEDS: BACLOFEN 10 MG TABLET (FP) PO SCH ×2 (15:52→22:47)
[2021-10-13] MEDS: THIAMINE HCL 100 MG TABLET (FP) PO SCH (22:47)
[2021-10-13] MEDS: MELATONIN 5 MG TABLETS PO SCH (22:47)
[2021-10-14] MEDS: GABAPENTIN 300 MG CAPSULE PO SCH ×3 (05:57→21:56)
[2021-10-14] MEDS: diazePAM 5 MG TABLET PO SCH ×3 (05:57→21:56)
[2021-10-14] MEDS: BACLOFEN 10 MG TABLET (FP) PO SCH ×3 (05:57→21:56)
[2021-10-14] MEDS ORDERED: methaDONE HCL 40 MG DISPERSABLE TABLET PO SCH (08:00)
[2021-10-14] MEDS ORDERED: methaDONE HCL 40 MG DISPERSABLE TABLET ONE (09:24)
[2021-10-14] MEDS: SERTRALINE HCL 50 MG TABLET (FP) PO SCH (09:35)
[2021-10-14] MEDS: diazePAM 5 MG TABLET PO PRN ×2 (09:35→17:35)
[2021-10-14] MEDS: PRENATAL VITAMINS W/ FOLIC ACID TABLET (FP) PO SCH (09:38)
[2021-10-14] MEDS: NICOTINE 10 MG CARTRIDGE (INHALER) IH PRN ×2 (10:16→18:01)
[2021-10-14 20:07] LABS: SARS-CoV-2 NAA Not Detected (Not Detected)
[2021-10-14] MEDS: MELATONIN 5 MG TABLETS PO SCH (21:55)
[2021-10-14] MEDS: THIAMINE HCL 100 MG TABLET (FP) PO SCH (21:56)
[2021-10-15] MEDS ORDERED: methaDONE HCL 40 MG DISPERSABLE TABLET ONE (04:40)
[2021-10-15] MEDS: GABAPENTIN 300 MG CAPSULE PO SCH ×3 (05:43→22:04)
[2021-10-15] MEDS: BACLOFEN 10 MG TABLET (FP) PO SCH ×3 (05:43→22:04)
[2021-10-15] MEDS: diazePAM 5 MG TABLET PO SCH ×2 (05:44→19:32)
[2021-10-15] MEDS: NICOTINE 10 MG CARTRIDGE (INHALER) IH PRN ×4 (05:47→22:06)
[2021-10-15] MEDS: diazePAM 5 MG TABLET PO PRN (08:44)
[2021-10-15] MEDS: PRENATAL VITAMINS W/ FOLIC ACID TABLET (FP) PO SCH (10:12)
[2021-10-15] MEDS: hydrOXYzine PAMOATE 25 MG CAPSULE (FP) PO PRN ×2 (10:46→14:04)
[2021-10-15] MEDS: SERTRALINE HCL 50 MG TABLET (FP) PO SCH ×2 (11:23→11:26)
[2021-10-15] MEDS: THIAMINE HCL 100 MG TABLET (FP) PO SCH (22:04)
[2021-10-15] MEDS: MELATONIN 5 MG TABLETS PO SCH (22:04)
[2021-10-16] MEDS ORDERED: methaDONE HCL 40 MG DISPERSABLE TABLET ONE (04:41)
[2021-10-16] MEDS: GABAPENTIN 300 MG CAPSULE PO SCH (05:31)
[2021-10-16] MEDS: BACLOFEN 10 MG TABLET (FP) PO SCH (05:31)
[2021-10-16] MEDS: NICOTINE 10 MG CARTRIDGE (INHALER) IH PRN (05:34)
[2021-10-16] MEDS ORDERED: diazePAM 5 MG TABLET PO ONE (06:00)
[2021-10-16 06:06] VITALS: TEMP 97.3
[2021-10-16] MEDS: hydrOXYzine PAMOATE 25 MG CAPSULE (FP) PO PRN (07:23)
[2021-10-16 08:47] VITALS: BP 100/66; PULSE 92
[2021-10-16] MEDS: PRENATAL VITAMINS W/ FOLIC ACID TABLET (FP) PO SCH (10:37)
[2021-10-16] MEDS: SERTRALINE HCL 50 MG TABLET (FP) PO SCH (10:37)
== END 2021-10-16 09:34 | disposition home or self-care (01) | DRG 773 ==
LOC: YASAS 11:12 → Y3N 16:29
PROVIDERS: ADMIT Allergy & Immunology; ATTEND Allergy & Immunology
PROC: HZ2ZZZZ Detoxification Services for Substance Abuse Treatment (ICD-10-PCS; principal; 2021-10-12)
DX: F10.230 Alcohol dependence with withdrawal, uncomplicated (principal); F11.20 Opioid dependence, uncomplicated; F13.230 Sedative, hypnotic or anxiolytic dependence with withdrawal, uncomplicated; F17.210 Nicotine dependence, cigarettes, uncomplicated; F32.A Depression, unspecified; F43.10 Post-traumatic stress disorder, unspecified; F19.24 Other psychoactive substance dependence with psychoactive substance-induced mood disorder; F19.282 Other psychoactive substance dependence with psychoactive substance-induced sleep disorder; F19.280 Other psychoactive substance dependence with psychoactive substance-induced anxiety disorder; F41.9 Anxiety disorder, unspecified; M54.59 Other low back pain; G89.29 Other chronic pain; G62.9 Polyneuropathy, unspecified; Z86.19 Personal history of other infectious and parasitic diseases
CPT/HCPCS: 36415; 80053; 81003; 85027; 86780; 87811; C9803-CS; J0475; U0003; U0005

== ENCOUNTER 2021-12-05 11:57 | Inpatient (IN) | payer OTHER ==
[2021-12-05 12:19] VITALS: BMI 27.9
[2021-12-05] MEDS ORDERED: MAGNESIUM HYDROX 2400MG/30ML ORAL SUSPENSION 30 ML CUP PO PRN (14:07)
[2021-12-05] MEDS ORDERED: MAG HYDROX/AL HYDROX/SIMETH 30 ML UNIT-DOSE CUP PO PRN (14:07)
[2021-12-05] MEDS ORDERED: IBUPROFEN 400 MG TABLET (FP) PO PRN (14:07)
[2021-12-05] MEDS ORDERED: MAGNESIUM CITRATE 300 ML BOTTLE PO PRN (14:07)
[2021-12-05] MEDS ORDERED: BISMUTH SUBSALICYLATE 524 MG/30 ML PO PRN (14:07)
[2021-12-05] MEDS ORDERED: BENZOCAINE/MENTHOL (CHLORASEPTIC ) LOZENGE MM PRN (14:07)
[2021-12-05] MEDS ORDERED: ONDANSETRON *ODT* 4 MG TABLET SL PRN (14:07)
[2021-12-05] MEDS ORDERED: ACETAMINOPHEN 325 MG TABLET (FP) PO PRN ×2 (14:07)
[2021-12-05] MEDS ORDERED: DICYCLOMINE HCL 10 MG CAPSULE PO PRN (14:07)
[2021-12-05] MEDS ORDERED: diazePAM 5 MG TABLET PO PRN (14:07)
[2021-12-05] MEDS ORDERED: IBUPROFEN 600 MG TABLET (FP) PO PRN (14:07)
[2021-12-05] MEDS ORDERED: LOPERAMIDE HCL 2 MG CAPSULE PO PRN (14:07)
[2021-12-05] MEDS ORDERED: methaDONE HCL 40 MG DISPERSABLE TABLET PO SCH (14:15)
[2021-12-05] MEDS ORDERED: diazePAM 5 MG TABLET ONE (15:38)
[2021-12-05] MEDS ORDERED: METHOCARBAMOL 500 MG TABLET ONE (15:38)
[2021-12-05] MEDS: METHOCARBAMOL 500 MG TABLET PO PRN (15:41)
[2021-12-05] MEDS ORDERED: methaDONE HCL 10 MG TABLET ONE (16:46)
[2021-12-05] MEDS ORDERED: methaDONE HCL 40 MG DISPERSABLE TABLET ONE (16:47)
[2021-12-05] MEDS: NICOTINE 14 MG/24 HOURS TOPICAL PATCH TD SCH (16:56)
[2021-12-05] MEDS: PRENATAL VITAMINS W/ FOLIC ACID TABLET (FP) PO SCH (16:57)
[2021-12-05] MEDS: NICOTINE 10 MG CARTRIDGE (INHALER) IH PRN (16:58)
[2021-12-05] MEDS: diazePAM 5 MG TABLET PO SCH ×2 (18:03→22:39)
[2021-12-05] MEDS: hydrOXYzine PAMOATE 25 MG CAPSULE (FP) PO SCH ×2 (18:05→22:40)
[2021-12-05 18:12] LABS: ALBUMIN 3.6 g/dl (3.4-5.0); CALCIUM 8.6 mg/dL (8.5-10.1)
[2021-12-05 18:15] LABS: CREATININE 0.9 mg/dL (0.55-1.3); HEMATOCRIT 34.3 % (35.4-49); HEMOGLOBIN 11.8 GM/dL (11.7-16.9); MCH 29.2 pg (25.7-33.7); MCHC 34.4 g/dl (32.0-35.9); MEAN CELL VOLUME 84.8 fl (80-96); MEAN PLT VOLUME 7.4 fl (7.5-11.1); PLATELET COUNT 165 10^3/uL (134-434); RBC 4.05 M/mm3 (4.00-5.60); RDW 12.8 % (11.9-15.9); WHITE BLOOD COUNT 8.8 K/mm3 (4.0-10.0)
[2021-12-05 18:16] LABS: TOT PROT 7.3 g/dl (6.4-8.2)
[2021-12-05] MEDS ORDERED: MELATONIN 5 MG TABLETS PO SCH (22:00)
[2021-12-05] MEDS: MELATONIN 5 MG TABLETS PO SCH (22:38)
[2021-12-05] MEDS: THIAMINE HCL 100 MG TABLET (FP) PO SCH (22:39)
[2021-12-05] MEDS: AMOXICILLIN 500 MG CAPSULE (FP) PO SCH (22:39)
[2021-12-05] MEDS: GABAPENTIN 300 MG CAPSULE PO SCH (22:42)
[2021-12-06] MEDS: diazePAM 5 MG TABLET PO SCH (05:13)
[2021-12-06] MEDS: hydrOXYzine PAMOATE 25 MG CAPSULE (FP) PO SCH (05:13)
[2021-12-06] MEDS: GABAPENTIN 300 MG CAPSULE PO SCH ×3 (05:13→23:03)
[2021-12-06] MEDS: NICOTINE 10 MG CARTRIDGE (INHALER) IH PRN ×2 (05:14→17:50)
[2021-12-06] MEDS ORDERED: methaDONE HCL 10 MG TABLET PO SCH (06:30)
[2021-12-06] MEDS ORDERED: methaDONE HCL 10 MG TABLET ONE (07:24)
[2021-12-06] MEDS ORDERED: methaDONE HCL 40 MG DISPERSABLE TABLET ONE (07:24)
[2021-12-06] MEDS: AMOXICILLIN 500 MG CAPSULE (FP) PO SCH ×2 (10:12→23:02)
[2021-12-06] MEDS: NICOTINE 14 MG/24 HOURS TOPICAL PATCH TD SCH (10:12)
[2021-12-06] MEDS: ARIPiprazole 5 MG TABLET PO SCH (10:12)
[2021-12-06] MEDS: SERTRALINE HCL 50 MG TABLET (FP) PO SCH (10:13)
[2021-12-06] MEDS: LORazepam 2 MG TABLET PO SCH ×3 (10:13→23:02)
[2021-12-06] MEDS: PRENATAL VITAMINS W/ FOLIC ACID TABLET (FP) PO SCH (10:13)
[2021-12-06] MEDS: AMMONIUM LACTATE 12% LOTION 225 GM BOTTLE TP SCH ×2 (11:50→23:03)
[2021-12-06 12:09] LABS: HIV INTERPRETATION NEGATIVE (NEGATIVE)
[2021-12-06] MEDS: LORazepam 1 MG TABLET PO PRN (12:38)
[2021-12-06] MEDS: METHOCARBAMOL 500 MG TABLET PO PRN ×2 (12:38→20:14)
[2021-12-06] MEDS: MELATONIN 5 MG TABLETS PO SCH (23:02)
[2021-12-06] MEDS: THIAMINE HCL 100 MG TABLET (FP) PO SCH (23:02)
[2021-12-07] MEDS ORDERED: methaDONE HCL 10 MG TABLET ONE (04:09)
[2021-12-07] MEDS ORDERED: methaDONE HCL 40 MG DISPERSABLE TABLET ONE (04:10)
[2021-12-07] MEDS: GABAPENTIN 300 MG CAPSULE PO SCH ×2 (05:43→15:46)
[2021-12-07] MEDS: LORazepam 2 MG TABLET PO SCH ×2 (05:43→10:28)
[2021-12-07] MEDS: METHOCARBAMOL 500 MG TABLET PO PRN (05:46)
[2021-12-07] MEDS ORDERED: diazePAM 5 MG TABLET PO SCH (06:00)
[2021-12-07] MEDS: NICOTINE 10 MG CARTRIDGE (INHALER) IH PRN ×2 (06:25→10:28)
[2021-12-07 09:33] VITALS: TEMP 97.8
[2021-12-07] MEDS: ARIPiprazole 5 MG TABLET PO SCH (10:24)
[2021-12-07] MEDS: SERTRALINE HCL 50 MG TABLET (FP) PO SCH (10:24)
[2021-12-07] MEDS: AMOXICILLIN 500 MG CAPSULE (FP) PO SCH (10:25)
[2021-12-07] MEDS: AMMONIUM LACTATE 12% LOTION 225 GM BOTTLE TP SCH (10:26)
[2021-12-07] MEDS: PRENATAL VITAMINS W/ FOLIC ACID TABLET (FP) PO SCH (10:26)
[2021-12-07] MEDS: NICOTINE 14 MG/24 HOURS TOPICAL PATCH TD SCH (10:26)
[2021-12-07 13:20] VITALS: BP 114/64; PULSE 77
[2021-12-07] MEDS: LORazepam 1 MG TABLET PO PRN (13:42)
[2021-12-08] MEDS ORDERED: LORazepam 1 MG TABLET PO SCH (05:00)
[2021-12-08] MEDS ORDERED: diazePAM 5 MG TABLET PO SCH (06:00)
[2021-12-09] MEDS ORDERED: LORazepam 0.5 MG TABLET PO PRN
[2021-12-09] MEDS ORDERED: LORazepam 0.5 MG TABLET PO SCH (05:00)
[2021-12-09] MEDS ORDERED: diazePAM 5 MG TABLET PO ONE (06:00)
[2021-12-10] MEDS ORDERED: LORazepam 0.5 MG TABLET PO ONE (05:00)
== END 2021-12-07 17:54 | disposition left against medical advice (07) | DRG 770 ==
LOC: YASAS 11:57 → Y6N 15:41
PROVIDERS: ADMIT Allergy & Immunology; ATTEND Surgery
PROC: HZ2ZZZZ Detoxification Services for Substance Abuse Treatment (ICD-10-PCS; principal; 2021-12-05)
DX: F10.230 Alcohol dependence with withdrawal, uncomplicated (principal); F11.20 Opioid dependence, uncomplicated; F13.20 Sedative, hypnotic or anxiolytic dependence, uncomplicated; F12.20 Cannabis dependence, uncomplicated; F17.210 Nicotine dependence, cigarettes, uncomplicated; F19.282 Other psychoactive substance dependence with psychoactive substance-induced sleep disorder; F19.24 Other psychoactive substance dependence with psychoactive substance-induced mood disorder; F43.10 Post-traumatic stress disorder, unspecified; F41.9 Anxiety disorder, unspecified; G62.9 Polyneuropathy, unspecified; E78.5 Hyperlipidemia, unspecified; L03.115 Cellulitis of right lower limb; Z62.810 Personal history of physical and sexual abuse in childhood; Z86.19 Personal history of other infectious and parasitic diseases
CPT/HCPCS: 36415; 80053; 85027; 86780; 87389